=== PATIENT | male | born 1995 | race Caucasian/White ===

== ENCOUNTER 2020-10-10 16:37 | Emergency (ER) | payer MEDICAID, OTHER ==
[~2020-10-10] VITALS: Ht 165.1 cm; Wt 54.4 kg
[2020-10-10 16:58] VITALS: BP 123/93
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
--- NOTE | 2020-10-10 17:23 | NUR ---
PATIENT AMBULATED TO RESTROOM WITH EMT
--- NOTE | 2020-10-10 17:39 | NUR ---
PT ALVAROID SWABBED AND WALKED TO LAB
[2020-10-10 17:44] LABS: APPEARANCE,URINE HAZY (CLEAR); BILIRUBIN,URINE 1+ (NEGATIVE); BLOOD, URINE NEGATIVE (NEGATIVE); COLOR,URINE YELLOW (YELLOW); LEUKOCYTE ESTERASE ,URINE NEGATIVE (NEGATIVE); NITRITE, URINE NEGATIVE (NEGATIVE); UGLUCOSE NEGATIVE (NEGATIVE)
[2020-10-10 17:54] LABS: BASOPHILS # (AUTO) 0.2 K/uL (0.00-0.22); BASOPHILS % (AUTO) 1.4 % (0.0-2.0); EOSINOPHILS # (AUTO) 0.1 K/uL (0-0.4); EOSINOPHILS % (AUTO) 0.7 % (0.0-4.0); HEMATOCRIT 41.5 % (36-52); HEMOGLOBIN 13.9 g/dL (12.0-18.0); LYMPHOCYTES % (AUTO) 13.6 % (20.5-51.1); MEAN CORPUSCULAR HEMOGLOBIN 31 pg (27-31); MEAN CORPUSCULAR HGB CONC 34 g/dL (33-37); MEAN CORPUSCULAR VOLUME 92.2 fL (80-94); MONOCYTES % (AUTO) 6.7 % (1.7-9.3); NEUTROPHILS # (AUTO) 11.5 K/uL (1.8-7.7); NEUTROPHILS % (AUTO) 77.6 % (42.2-75.2); PLATELET COUNT (AUTO) 239 K/uL (140-450); RED CELL DISTRIBUTION WIDTH 12.6 % (11.6-13.7); WHITE BLOOD COUNT (AUTO) 14.9 K/uL (4.8-10.8)
[2020-10-10 17:55] LABS: BARBITURATE, URINE NEGATIVE ng/ml (NEG <=200); BENZODIAZEPINE, URINE NEGATIVE ng/mL (NEG <=200); CANNABINOID, URINE POSITIVE ng/mL (NEG <=50); COCAINE, URINE NEGATIVE ng/mL (NEG <=300); OPIATE, URINE NEGATIVE ng/mL (NEG <=2000); PHENCYCLIDINE SCREEN,URINE NEGATIVE ng/mL (NEG <=25)
[2020-10-10 18:11] LABS: ACETAMINOPHEN < 0.5 ug/ml (10-30); ALBUMIN 4.9 g/dL (3.4-5.0); ANION GAP 12.9 (8-16); ASPARTATE AMINOTRANSFERASE 22 U/L (15-37); CARBON DIOXIDE 27.7 mmol/L (21-32); CHLORIDE 104 mmol/L (98-107); CREATININE 1.1 mg/dL (0.6-1.3); GFR ARICAN-AMERICAN 106 mL/min (>90); GLUCOSE 130 mg/dL (74-106); POTASSIUM 3.6 mmol/L (3.5-5.1); SALICYLATE 4.1 mg/dL (2.8-20.0); SODIUM SERUM 141 mmol/L (136-145); TOTAL BILIRUBIN 0.5 mg/dL (0.0-1.0); UREA NITROGEN, BLOOD 10 mg/dL (7-18)
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
--- NOTE | 2020-10-10 19:13 | NUR ---
RECEIVED REPORT FROM KRISTI UREÑA FOR CONTINUATION OF CARE.
--- NOTE | 2020-10-10 19:30 | NUR ---
SUICIDE SEVERITY SCALE COMPLETED, PT STATES NO DESIRE TO HURT HIMSELF. SI PRECAUTIONS ARE IN PLACE. PT IS SITTING UPRIGHT IN BED. BED IS LOCKED AND IN LOWEST POSITION. PT IS IN THE DIRECT VIEW OF THE NURSING STATION. PT IS NOT IN ANY ACUTE DISTRESS AT THIS TIME.
--- NOTE | 2020-10-10 19:55 | NUR ---
VINCENT MORALES AT BEDSIDE
--- NOTE | 2020-10-10 19:57 | NUR ---
ermd at bed side.
--- NOTE | 2020-10-10 20:02 | NUR ---
PER REQUEST FOR TELEPSYCH INITIATED [facility] ID:[id number]
--- NOTE | 2020-10-10 20:25 | NUR ---
PT SPEAKING WITH TELEPSYCH
--- NOTE | 2020-10-10 21:03 | NUR ---
RECEIVED A CALL FROM SHIRLEY AT THE [facility] REGARDING POSSIBLE TRANSFER OF THIS PT TO [facility]
--- NOTE | 2020-10-10 21:08 | NUR ---
SPOKE WITH SHIRLEY AT THE [facility], HE WAS UNABLE TO CONNECT ME WITH THE NURSE AT [facility] FOR REPORT ON THE PT PRIOR TO TRANSFER
--- NOTE | 2020-10-10 21:14 | NUR ---
CALLED [facility] [phone], SPOKE WITH KRISTI SMYHT TO GIVE REPORT ON THE PT PRIOR TO TRANSFER. SHE STATED THE ADMITTING PSYCHIATRIST IS DR. OROURKE
--- NOTE | 2020-10-10 21:25 | NUR ---
[facility] REQUESTED A PCR COVID SWAB BE OBTAINED PRIOR TO TRANSFERRING THE PT
--- NOTE | 2020-10-10 21:30 | NUR ---
PT IS AWAKE WITH HOB ELEVATED, BED IS LOCKED AND IN LOWEST POSITION. PT IS NOT IN ANY ACUTE DISTRESS AT THIS TIME. SI PRECAUTIONS ARE IN PLACE. SIDE RAILS X2 FOR PT PROTECTION. SITTER AT BEDSIDE. PT IS PLACED WITHIN VIEW OF NURSING STATION. WILL CONTINUE TO MONITOR.
--- NOTE | 2020-10-10 21:38 | NUR ---
OBTAINED COVID SWAB-PCR AND WALKED OVER TO LAB
--- NOTE | 2020-10-10 21:57 | NUR ---
ETA FOR TRANSPORT TO TAKE THE PT TO [facility] IS [id number]
--- NOTE | 2020-10-10 21:59 | NUR ---
PT REQUETED US WITH HIS BROTHER SHELLY'S [phone] BE CALLED TO ADVISE HIM OF THE PTS CURRENT LOCATION
--- NOTE | 2020-10-10 22:45 | NUR ---
PT IS ASLEEP WITH HOB ELEVATED, BED IS LOCKED AND IN LOWEST POSITION. PT IS NOT IN ANY ACUTE DISTRESS AT THIS TIME. SI PRECAUTIONS ARE IN PLACE. SIDE RAILS X2 FOR PT PROTECTION. SITTER AT BEDSIDE. PT IS PLACED WITHIN VIEW OF NURSING STATION. WILL CONTINUE TO MONITOR.
--- NOTE | 2020-10-10 23:00 | NUR ---
NEW ETA FOR TRANSPORT TO [facility] IS [id number]
--- NOTE | 2020-10-10 23:21 | NUR ---
AMBULATED TO ED RESTROOM WITH STEADY GAIT ACCOMPANIED BY SITTER
--- NOTE | 2020-10-11 | NUR ---
PT STATED THAT HE WAS FEELING ANXIOUS, ERMD MADE AWARE
[2020-10-11] MEDS ORDERED: LORazepam 1 MG TAB PO ONE (00:05)
--- NOTE | 2020-10-11 00:31 | NUR ---
PT REQUESTED THAT I CALL HIS BROTHER SHELLY [phone] TO UPDATE HIM ON HIS STATUS AND LOCATION. LEFT A MESSAGE FOR HIS BROTHER TO GIVE [facility] ER A CALL BACK.
--- NOTE | 2020-10-11 00:37 | NUR ---
PT IS REFUSING TO TAKE LORAZEPAM AT THIS TIME.
--- NOTE | 2020-10-11 01:32 | NUR ---
PT IS ASLEEP WITH HOB IN LOW FOWLERS, BED IS LOCKED AND IN LOWEST POSITION. PT IS NOT IN ANY ACUTE DISTRESS AT THIS TIME. SI PRECAUTIONS ARE IN PLACE. SIDE RAILS X2 FOR PT PROTECTION. SITTER AT BEDSIDE. PT IS PLACED WITHIN VIEW OF NURSING STATION. WILL CONTINUE TO MONITOR.
[2020-10-11 02:23] VITALS: BP 129/78
--- NOTE | 2020-10-11 02:23 | NUR ---
Patient to be transferred to [facility]. Is being transferred due to higher level of care. Receiving facility has accepting physician and available space. ER physician has signed transfer form. Patient or responsible republican has agreed to transfer and signed form. Patient belongings inventoried and will be sent with patient. Copy of nursing notes, lab reports, EKG, Physicians Orders and X-rays to be sent with patient. Report called to KRISTI Velasco at receiving facility. [facility] ambulance service has been called for transfer. Pt has been picked up by EMS at this time. [facility] made aware that pt is on their way at this time.
== END 2020-10-11 02:23 ==
LOC: MED 16:37
DX: R45.851 Suicidal ideations (principal); R45.850 Homicidal ideations; Z20.828 Contact with and (suspected) exposure to other viral communicable diseases
CPT/HCPCS: 36415; 80053; 80305; 81003; 85025; 87426; 99285; G0480; G0482; U0003; 81025

== ENCOUNTER 2023-10-23 08:29 | Emergency (ER) | payer MEDICAID ==
[~2023-10-23] VITALS: Ht 170.2 cm; Wt 59.0 kg
[2023-10-23 08:33] VITALS: BP 107/80; PULSE 96; RESP 18; TEMP 98.1; O2SAT 97
== END 2023-10-23 09:13 ==
LOC: MED 08:29
DX: S80.212A Abrasion, left knee, initial encounter (principal); S40.212A Abrasion of left shoulder, initial encounter; S60.512A Abrasion of left hand, initial encounter; S60.511A Abrasion of right hand, initial encounter; Z02.89 Encounter for other administrative examinations; S20.419A Abrasion of unspecified back wall of thorax, initial encounter; F17.200 Nicotine dependence, unspecified, uncomplicated; F12.90 Cannabis use, unspecified, uncomplicated; W18.39XA Other fall on same level, initial encounter; Y92.89 Other specified places as the place of occurrence of the external cause; Y93.89 Activity, other specified; Y99.8 Other external cause status
CPT/HCPCS: 99283